=== PATIENT | male | born 1955 ===

== ENCOUNTER 2023-05-27 18:17 | Outpatient (NON) | payer MEDICARE, SELFPAY ==
[2023-05-27 18:58] LABS: Basophils Absolute Auto 0.04 K/mm3 (0.00-0.10); Basophils Percent Auto 0.9 % (0.0-1.0); Eosinophils Absolute Auto 0.19 K/mm3 (0.02-0.50); Eosinophils Percent Auto 4.4 % (1.0-6.0); Hematocrit 39.6 % (37.0-46.0); Hemoglobin 12.3 g/dL (12.4-15.3); Immature Granulocyte Absolute 0.01 K/mm3 (0.00-0.00); Immature Granulocyte Percent A 0.2 % (0.0-0.0); Lymphocytes Absolute Auto 1.63 K/mm3 (1.10-4.50); Mean Corpuscular HGB Conc 31.1 g/dL (32.0-36.0); Mean Corpuscular Hemoglobin 30.1 pg (27.0-31.0); Mean Corpuscular Volume 97.1 fL (78.0-102.0); Mean Platelet Volume 10.9 fl (8.7-11.0); Monocytes Absolute Auto 0.35 K/mm3 (0.10-0.90); Monocytes Percent Auto 8.2 % (2.0-11.0); Neutrophils Absolute Auto 2.1 K/mm3 (1.7-7.2); Neutrophils Percent Auto 48.3 % (50.0-70.0); Platelet Count Result 371 K/mm3 (150-420); Red Blood Count 4.08 M/mm3 (4.70-6.10); Red Cell Distribution Width 14.7 % (11.6-14.4); White Blood Count 4.3 K/mm3 (4.8-10.8)
[2023-05-27 19:16] LABS: Alanine Aminotransferase 9 U/L (16-63); Albumin Level 0.8 g/dL (3.4-5.0); Alkaline Phosphatase 117 U/L (46-116); Anion Gap 3 mmol/L (8-16); Aspartate Amino Transferase 19 U/L (15-37); Bilirubin,Total 0.2 mg/dL (0.00-1.00); Blood Urea Nitrogen 22 mg/dL (7-18); Calcium 8.5 mg/dL (8.5-10.1); Carbon Dioxide 30 mmol/L (21-32); Chloride 114 mmol/L (98-108); Estimated Glomerular Filt Rate 58; Glucose 97 mg/dL (70-99); NT Pro B Type Natriuretic Pept 470 pg/mL (0-125); Osmolality Calculated 307 mOsm/kg (285-295); Potassium 4.6 mmol/L (3.5-5.1); Sodium 147 mmol/L (136-145); Total Protein 4.4 g/dL (6.4-8.2)
== END 2023-05-27 18:18 | disposition home or self-care (01) ==
LOC: CHSLAB 18:18
PROVIDERS: Visit Provider Family Medicine
DX: R60.9 Edema, unspecified (principal); R06.02 Shortness of breath; I50.9 Heart failure, unspecified
CPT/HCPCS: 36415; 80053; 83735; 83880; 85025

== ENCOUNTER 2023-06-11 12:40 | Outpatient (NON) | payer MEDICARE, SELFPAY ==
[2023-06-11 13:08] LABS: Hematocrit 37.4 % (37.0-46.0); Hemoglobin 11.7 g/dL (12.4-15.3); Mean Corpuscular HGB Conc 31.3 g/dL (32.0-36.0); Mean Corpuscular Hemoglobin 30.2 pg (27.0-31.0); Mean Corpuscular Volume 96.4 fL (78.0-102.0); Mean Platelet Volume 10.9 fl (8.7-11.0); Platelet Count Result 311 K/mm3 (150-420); Red Blood Count 3.88 M/mm3 (4.70-6.10); White Blood Count 3.2 K/mm3 (4.8-10.8)
[2023-06-11 13:16] LABS: Albumin Level 0.9 g/dL (3.4-5.0); Alkaline Phosphatase 109 U/L (46-116); Anion Gap 5 mmol/L (8-16); Aspartate Amino Transferase 15 U/L (15-37); Bilirubin,Total 0.2 mg/dL (0.00-1.00); Blood Urea Nitrogen 23 mg/dL (7-18); Calcium 8.6 mg/dL (8.5-10.1); Carbon Dioxide 28 mmol/L (21-32); Chloride 112 mmol/L (98-108); Estimated Glomerular Filt Rate > 60; Glucose 91 mg/dL (70-99); Magnesium 1.9 mg/dL (1.8-2.4); Osmolality Calculated 303 mOsm/kg (285-295); Potassium 4.5 mmol/L (3.5-5.1); Sodium 145 mmol/L (136-145); Total Protein 4.5 g/dL (6.4-8.2)
[2023-06-11 13:27] LABS: Alanine Aminotransferase 12 U/L (16-63)
[2023-06-11 13:28] LABS: Band Neutrophils Percent 0 % (0-6); Basophils Percent Manual 0 % (0-1); Eosinophils Absolute Manual 0.06 K/mm3 (0.02-0.5); Eosinophils Percent Manual 2 % (1-6); Lymphocytes Absolute Manual 1.37 K/mm3 (1.1-4.5); Lymphocytes Percent Manual 43 % (18-44); Monocytes Absolute Manual 0.22 K/mm3 (0.1-0.90); Monocytes Percent Manual 7 % (3-9); Neutrophils Absolute Manual 1.53 K/mm3 (1.3-6.7); Neutrophils Percent Manual 48 % (46-73); Platelet Estimate Adequate (Adequate); Total Cells Counted 100
== END 2023-06-11 12:41 | disposition home or self-care (01) ==
PROVIDERS: Visit Provider Family Medicine
DX: E83.42 Hypomagnesemia (principal); I50.9 Heart failure, unspecified
CPT/HCPCS: 36415; 80053; 83735; 85025

== ENCOUNTER 2023-06-25 10:39 | Outpatient (NON) | payer MEDICARE, SELFPAY ==
[2023-06-25 10:47] LABS: Hematocrit 40.3 % (37.0-46.0); Hemoglobin 12.5 g/dL (12.4-15.3); Mean Corpuscular Hemoglobin 29.6 pg (27.0-31.0); Mean Corpuscular Volume 95.5 fL (78.0-102.0); Mean Platelet Volume 10.5 fl (8.7-11.0); Platelet Count Result 387 K/mm3 (150-420); Red Blood Count 4.22 M/mm3 (4.70-6.10); Red Cell Distribution Width 13.5 % (11.6-14.4)
[2023-06-25 11:06] LABS: Anion Gap 4 mmol/L (8-16); Band Neutrophils Percent 0 % (0-6); Basophils Absolute Manual 0.03 K/mm3 (0-0.1); Basophils Percent Manual 1 % (0-1); Blood Urea Nitrogen 18 mg/dL (7-18); Calcium 8.4 mg/dL (8.5-10.1); Carbon Dioxide 29 mmol/L (21-32); Chloride 111 mmol/L (98-108); Eosinophils Absolute Manual 0.12 K/mm3 (0.02-0.5); Eosinophils Percent Manual 4 % (1-6); Estimated Glomerular Filt Rate > 60; Glucose 85 mg/dL (70-99); Lymphocytes Absolute Manual 1.53 K/mm3 (1.1-4.5); Lymphocytes Percent Manual 51 % (18-44); Magnesium 2.1 mg/dL (1.8-2.4); Metamyelocytes Percent 0 %; Monocytes Absolute Manual 0.15 K/mm3 (0.1-0.90); Monocytes Percent Manual 5 % (3-9); Myelocytes Percent 0 %; Neutrophils Absolute Manual 1.17 K/mm3 (1.3-6.7); Neutrophils Percent Manual 39 % (46-73); Osmolality Calculated 298 mOsm/kg (285-295); Phosphorus 4.2 mg/dL (2.6-4.7); Platelet Estimate Adequate (Adequate); Potassium 4.5 mmol/L (3.5-5.1); Sodium 144 mmol/L (136-145); Total Cells Counted 100
== END 2023-06-25 10:40 | disposition home or self-care (01) ==
LOC: CHSLAB 10:41
PROVIDERS: Visit Provider Family Medicine
DX: I50.22 Chronic systolic (congestive) heart failure (principal); R79.9 Abnormal finding of blood chemistry, unspecified
CPT/HCPCS: 36415; 80069; 83735; 85025